=== PATIENT | male | born 1975 | race Two or more races ===

== ENCOUNTER → 2019-08-17 | Emergency (ER) | payer OTHER ==
[~2019-08-17] VITALS: Ht 167.6 cm; Wt 80.7 kg
[~2019-08-17] MED LIST: DRAMAMINE; IBUPROFEN 400 MG
== END | disposition home or self-care (01) ==
LOC: ER 21:56
DX: S30.0XXA Contusion of lower back and pelvis, initial encounter (principal); W18.39XA Other fall on same level, initial encounter; Y93.89 Activity, other specified; Y92.89 Other specified places as the place of occurrence of the external cause; Y99.8 Other external cause status